=== PATIENT | male | born 1960 | race Caucasian/White ===

== ENCOUNTER 2019-04-30 09:20 | Emergency (ER) | payer OTHER, MEDICAID ==
[~2019-04-30] VITALS: Ht 167.6 cm; Wt 70.0 kg
--- NOTE | 2019-04-30 09:36 | NUR ---
PT BEING WHEELED TO ROOM VIA WC BY TECH. OFFICER WITH PT.
--- NOTE | 2019-04-30 09:42 | NUR ---
PT BROUGHT IN FROM [facility] HOME D/T LEFT TESTICULAR PAIN AND SWELLING. HX OF HERNIA SUGERY 04/15. PT STATED TESTICLE HAS BEEN GETTING "BIGGER AND HARDER" EVER SINCE.
[2019-04-30] MEDS ORDERED: NAPR-816 PO (09:43)
--- NOTE | 2019-04-30 10:30 | NUR ---
US AT BEDSIDE.
[2019-04-30 10:42] VITALS: BP 115/75
--- NOTE | 2019-04-30 10:42 | NUR ---
PT LYING COMFORTABLY ON GURNEY. PT REQUESTING FOOD. RN INFORMED PT THAT HE COULD HAVE NOTHING TO EAT OR DRINK AT THIS TIME. PT VERBALIZED UNDERSTANDING. AWAITING RESULTS FROM US. OFFICE AT BEDSIDE. PT CUFFED BILATERALLY TO UE.
--- NOTE | 2019-04-30 11:04 | NUR ---
ERMD AT BEDSIDE GOING OVER RESULTS WITH PT.
--- NOTE | 2019-04-30 11:20 | NUR ---
PT BEING DISCHARGED BACK TO [facility] IN A STABLE CONDITION. DC INSTRUCTIONS WERE DISCUSSED WITH PT. PT VERBALIZED UNDERSTANDING. NO FUTHER QUESTION OR CONCERNS WERE EXPRESSED AT THAT TIME. [employer] STUDENTS WHEELED PT OUT TO OFFICERS CAR VIA [employer].
== END 2019-04-30 11:22 | disposition home or self-care (01) ==
LOC: ED 10:21
DX: S30.22XA Contusion of scrotum and testes, initial encounter (principal); R10.32 Left lower quadrant pain; X58.XXXA Exposure to other specified factors, initial encounter; Y93.89 Activity, other specified; Y92.89 Other specified places as the place of occurrence of the external cause; Y99.8 Other external cause status
CPT/HCPCS: 76857; 99284